=== PATIENT | female | born 1965 | race American Indian/Alaskan Native ===

== ENCOUNTER 2018-07-22 12:36 | Emergency (ER) | payer BC ==
--- NOTE | 2018-07-22 12:45 | Emergency Department Report ---
Blank Doc - Documentation Documentation: This is a 53-year-old female that presents with bilateral earaches with left ear worse. Patient denies any other complaints. Denies any ear discharge. Exam: Bilateral ear canals has cerumen impaction. Unable to visualize TMs. No mastoid tenderess. No tragus pain. This initial assessment diagnostic orders/clinical plan/treatment(s) is/are subject to change based on patient's health status, clinical progression and re- assessment by fellow clinical providers in the ED. Further treatment and workup at subsequent clinical providers discretion. Patient/guardians urged not to elope from ED s their condition may be serious if not clinically assessed and managed. Initial orders include: 1-Patient sent to [facility] for further evaluation and treatment
--- NOTE | 2018-07-22 15:00 | Emergency Department Report ---
ED ENT HPI - General Chief complaint: Earache Stated complaint: POSS EAR INFECTION Time Seen by Provider: 07/22/18 12:42 Source: patient Mode of arrival: Ambulatory Limitations: No Limitations - History of Present Illness Initial comments: Patient is 53 years old female with no significant past medical history. Patient presented to the emergency room complaining of bilateral ear pain for the last 2 months. Patient stated that she had been seen by her primary care physician for advice her to follow up with an ENT, however, work schedule is not allowing him to follow-up with an ENT. Patient stated that she is having difficulty hearing from her left ear and she thinks that she had a wax in her ear. Patient denied any fever, chills, nausea or vomiting. No headache no weakness. MD complaint: ear pain -: month(s) Severity: moderate Quality: sharp ED Dental HPI - General Chief complaint: Earache Stated complaint: POSS EAR INFECTION Time Seen by Provider: 07/22/18 12:42 Source: patient Mode of arrival: Ambulatory Limitations: No Limitations ED Review of Systems ROS: Stated complaint: POSS EAR INFECTION Other details as noted in HPI Comment: All other systems reviewed and negative Constitutional: denies: chills, malaise Respiratory: denies: cough, orthopnea, shortness of breath, SOB with exertion, SOB at rest, wheezing Cardiovascular: denies: chest pain, palpitations Gastrointestinal: denies: abdominal pain, nausea Musculoskeletal: denies: back pain ED Past Medical Hx - Past Medical History Previous Medical History?: Yes Additional medical history: Earache - Surgical History Past Surgical History?: Yes Additional Surgical History: EGD - Social History Smoking Status: Current Every Day Smoker Substance Use Type: Alcohol ED Physical Exam - General Limitations: No Limitations General appearance: alert, in no apparent distress - Head Head exam: Present: atraumatic, normocephalic, normal inspection - Eye Eye exam: Present: normal appearance, PERRL - ENT ENT exam: Present: normal exam, normal orophraynx, mucous membranes moist, other (cerumen impaction, right ear) - Neck Neck exam: Present: normal inspection, full ROM. Absent: tenderness, meningismus, lymphadenopathy, thyromegaly - Cardiovascular Cardiovascular Exam: Present: regular rate, normal rhythm, normal heart sounds - GI/Abdominal GI/Abdominal exam: Present: soft. Absent: distended, tenderness, guarding, rebound, rigid - Extremities Exam Extremities exam: Present: normal inspection, full ROM, normal capillary refill. Absent: pedal edema, calf tenderness - Back Exam Back exam: Present: normal inspection, full ROM. Absent: CVA tenderness (R), CVA tenderness (L) - Neurological Exam Neurological exam: Present: alert, oriented X3, CN II-XII intact, normal gait - Skin Skin exam: Present: warm, intact, normal color ED Course Vital Signs 07/22/18 12:44 Temperature 99.1 F Pulse Rate 89 Respiratory 20 Rate Blood Pressure 160/89 O2 Sat by Pulse 100 Oximetry Critical care attestation.: If time is entered above; I have spent that time in minutes in the direct care of this critically ill patient, excluding procedure time. ED Disposition Clinical Impression: Ear pain, Cerumen impaction Disposition: TO HOME OR SELFCARE Is pt being admited?: No Condition: Stable Instructions: Cerumen Impaction (ED) Referrals: PRIMARY CARE, [Referring] - 3-5 Days
== END 2018-07-22 15:32 | disposition home or self-care (01) ==
LOC: ED 12:36
CPT/HCPCS: 99283